=== PATIENT | female | born 1985 | race Caucasian/White ===

== ENCOUNTER 2019-03-17 19:02 | Emergency (ER) | payer OTHER ==
[~2019-03-17] VITALS: Ht 157.5 cm; Wt 112.0 kg
--- OUTSIDE RECORDS SUMMARY | ~2019-03-17 | XMS | Encounter Summary ---
Demographics + + + | Address | [address] | | | [place] [address] | + + + | Home Phone | | + + + | Preferred Language | Unknown | + + + | Marital Status | Single | + + + | Cheondoism Affiliation | Unknown | + + + | Race | Unknown | + + + | Ethnic Group | Unknown | + + + Author + + + | Author | [facility] | | | and [place] | + + + | Organization | [facility] | | | and [place] | + + + | Address | Unknown | + + + | Phone | Unavailable | + + + Support + + +---------+ + | Name | Relationship | Address | Phone | + + +---------+ + | Lalita Elizabeth | ECON | Unknown | | + + +---------+ + | Artemio Cazareskeri | ECON | Unknown | | + + +---------+ + Care Team Providers + +------+ + | Care Coverage Specialist Name | Role | Phone | + +------+ + PCP | Unavailable | + +------+ + Encounter Details +--------+ + + + + | Date | Type | Department | Care Team | Description | +--------+ + + + + | 12/21/ | Hospital | [facility] | | | | 2000 | Encounter | MED CTR XRAY [address] | | | | | [address] [place] | | | | | | [place] [address] | | | | | | [phone] | | | +--------+ + + + + Social History + +-------+ +--------+------+ | Tobacco Use | Types | Packs/Day | Years | Date | | | | | Used | | + +-------+ +--------+------+ | Never Assessed | | | | | + +-------+ +--------+------+ + + + | Sex Assigned at | Date Recorded | | | | + + + | Not on file | | + + + + + + + | Job Start Date | Occupation | Industry | + + + + | Not on file | Not on file | Not on file | + + + + + + + + | Travel History | Travel Start | Travel End | + + + + + + | No recent travel history available. | + + documented as of this encounter Plan of Treatment Not on filedocumented as of this encounter Visit Diagnoses Not on filedocumented in this encounter"
--- OUTSIDE RECORDS SUMMARY | ~2019-03-17 | XMS | Encounter Summary ---
Demographics + + + | Address | [address] | | | [place] [address] | + + + | Home Phone | | + + + | Preferred Language | Unknown | + + + | Marital Status | Single | + + + | Jain Affiliation | Unknown | + + + | Race | Unknown | + + + | Ethnic Group | Unknown | + + + Author + + + | Author | [facility] | | | and [place] | + + + | Organization | [facility] | | | and [place] | [...] Team Providers + +------+ + | Care Safety Inspector Name | Role | Phone | + +------+ + PCP | Unavailable | + +------+ + Encounter Details +--------+ + + + + | Date | Type | Department | Care Team | Description | +--------+ + + + + | 12/21/ | Hospital | [facility] | | | | 2000 | Encounter | MED CTR XRAY [address] | | | | | [address] | | | | | | [place] [address] | | | | | | [phone] | | | +--------+ + + + [...]
--- OUTSIDE RECORDS SUMMARY | ~2019-03-17 | XMS | Encounter Summary ---
Demographics + + + | Address | [address] | | | [place] [address] | + + + | Home Phone | | + + + | Preferred Language | Unknown | + + + | Marital Status | Single | + + + | Mormon Affiliation | Unknown | + + + | Race | Unknown | + + + | Ethnic Group | Unknown | + + + Author + + + | Author | [facility] | | | and [place] | + + + | Organization | [facility] | | | and [place] | + + + | Address | Unknown | + + + | Phone | Unavailable | + + + Support + + +---------+ + | Name | Relationship | Address | Phone | + + +---------+ + | Lalita Elizabeth | ECON | Unknown | | + + +---------+ + | Artemio Dooley | ECON | Unknown | | + + +---------+ + Care Team Providers + +------+ + | Care Audio Visual Equipment Rental Clerk Name | Role | Phone | + +------+ + | No, Physician | PCP | Unavailable | + +------+ + Reason for Referral Evaluate & Treat (Routine) +--------+ + + + + + | Status | Reason | Specialty | Diagnoses / | Referred By | Referred To | | | | | Procedures | Contact | Contact | +--------+ + + + + + | Closed | Specialty | | Diagnoses | [facility], | | | | Services | Services / | At risk for | Migue Nix MD | | | | Required | | ineffective | [id number] | | | | | and | | [place] | | | | | | breastfeedin | [place] | | | | | | g | [place], | | | | | | | [place] [address] | | | | | | | Phone: | | | | | | | [phone] | | | | | | | Fax: | | | | | | | [phone] | | +--------+ + + + + + Reason for Visit Auth/Cert +--------+--------+ + + + + | Status | Reason | Specialty | Diagnoses / | Referred By | Referred To | | | | | Procedures | Contact | Contact | +--------+--------+ + + + + | Closed | | | | | | +--------+--------+ + + + + Encounter Details +--------+ + + + + | Date | Type | Department | Care Team | Description | +--------+ + + + + | 09/30/ | Hospital | [facility] | Migue Wilder, | At risk for | | 2014 - | Encounter | MED CTR [facility] | [id number] | ineffective | | | | [address] | [facility] [place] | | | 10/02/ | | [place] | [place] [address] | (Primary Dx) | | 2013 | | [address] | [phone] | | | | | [phone] | | | +--------+ + + + + Social History + +-------+ +--------+------+ | Tobacco Use | Types | Packs/Day | Years | Date | | | | | Used | | + +-------+ +--------+------+ | Never Smoker | | | | | + +-------+ +--------+------+ + + +---------+ + | Alcohol Use | Drinks/Week | oz/Week | Comments | + + +---------+ + | No | | | | + + +---------+ + + + + | Sex Assigned at [...] + + documented as of this encounter Last Filed Vital Signs + + + + + | Vital Sign | Reading | Time Taken | Comments | + + + + + | Blood Pressure | 108/65 | 10/02/2013 8:00 AM | | | | | PDT | | + + + + + | Pulse | 84 | 10/02/2013 8:00 AM | | | | | PDT | | + + + + + | Temperature | 36.9 C (98.4 F) | 10/02/2013 8:00 AM | | | | | PDT | | + + + + + | Respiratory Rate | 16 | 10/02/2013 8:00 AM | | | | | PDT | | + + + + + | Oxygen Saturation | 98% | 09/30/2013 2:00 PM | | | | | PDT | | + + + + + | Inhaled Oxygen | - | - | | | Concentration | | | | + + + + + | Weight | 115.7 kg (255 lb) | 09/30/2013 4:08 AM | | | | | PDT | | + + + + + | Height | 157.5 cm (5' 2") | 09/30/2013 4:08 AM | | | | | PDT | | + + + + + | Body Mass Index | 46.64 | 09/30/2013 4:08 AM | | | | | PDT | | + + + + + documented in this encounter Functional Status + + + + | Functional Status | Response | Date of Assessment | + + + + | Are you deaf or do you have serious | No | 09/30/2013 | | difficulty hearing? | | | + + + + | Are you blind or do you have serious | No | 09/30/2013 | | difficulty seeing, even when wearing | | | | glasses? | | | + + + + | Do you have serious difficulty walking or | No | 09/30/2013 | | climbing stairs? (5 years old or older) | | | + + + + | Do you have difficulty dressing or bathing? | No | 09/30/2013 | | (5 years old or older) | | | + + + + | Because of a physical, mental, or emotional | No | 09/30/2013 | | condition, do you have difficulty doing | | | | errands alone such as visiting a doctor's | | | | office or shopping? [15 years old or | | | | older)] | | | + + + + + + + + | Cognitive Status | Response | Date of Assessment | + + + + | Because of a physical, mental, or emotional | No | 09/30/2013 | | condition, do you have serious difficulty | | | | concentrating, remembering, or making | | | | decisions? (5 years old or older) | | | + + + + documented as of this encounter Discharge Instructions Instructions Criselda Vivar RN - 10/02/2013 DISCHARGE INSTRUCTIONS Warning Signs Check List Notify your clinician immediately if you are experiencing any of the following: Heavy bleeding from the vagina (blood is bright-red and soaks a pad in an hour or less) Normal bleeding decreases in amount over time and is: Bright-red (lasts two to three days). Pinkish or brown (lasts from about the third day to the tenth day). Creamy or yellow (usually lasts one to two weeks). Discharge from the vagina that has a bad odor. Temperature over 100.4 (38 C) or you feel cold and have the chills (you are oral vering). Urination that is painful, difficult, or too frequent. Difficulty having a bowel movement. Painful, very red, and swollen incision or leaking of any fluids. Breasts that are full and or/painful (swollen, hot, tight, itchy, lumpy, shiny, flat nip ples, or sore spots with flu-like symptoms). Pain that becomes worse and unrelieved by medication. Trouble breathing, dizziness, or faintness. Crying spells or mood swings that feel out of control. Pain, redness, warmth or firmness in the lower calf. Activity/Exercise Do not drive while you are taking narcotics. If you had a secion, try driving maneuvers while parked to ensure no increase in incisional pain. Gradually increase your daily activities until you are back to your normal routine. Rest frequently. Remember to continue to drink plenty of fluids and eat frequently if yo u are . Heavy lifting or other strenuous exertion is unlikely to disrupt your incision or lacera tion but it may cause an increase in pain. Your provider will tell you if additional restric tions apply to you . Bowels and Regularity constipation is common; You make take Docusate sodium or Milk of Magnesia to alleviate discomfort Painful bowel movements or rectal pain may result from hemorrhoids; use Tucks and/or to pical treatment like Anusol-HC. Sitz baths can also help Normal Bleeding Vaginal spotting may last up to six weeks. It is important that you change your pad on a regular basis. Your menstrual period may occur as early as six weeks to two months after your delivery. Care of Stitches You should feel less discomfort every day from your stitches. Perineal stitches will dissolve within 2-4 weeks. You may shower or bathe with stitches; drip plain or soapy water over the incision and d ry gently with a clean towel. If you have sergey; you may shower, (no tub bathing) and dry gently with a clean towel. If you had any sergey that were not removed during your hospitalization they will need to be removed in your provider's office. Steri-strips may fall off on their own or can be removed at post-op visit. Sex/Douching/Tampons Do not place anything in the vagina for the first six weeks after delivery. Your healthcare provider may advise you to wait up to six weeks for intercourse. Once th e bleeding has stopped, it is alright to have intercourse if you feel ready. Keep in mind yo u are at risk of getting . You may find your vagina feels dry, making sex uncomfortable. This can last several clive hs due to changing hormone levels. To help lubricate your vagina, you may purchase a water-s oluble lubricant (e.g., Astroglide) from your local drug store. This will help make interco urse more comfortable. documented in this encounter Medications at Time of Discharge + + + +---------+ + + | Medication | Sig | Dispensed | Refills | Start | End Date | | | | | | Date | | + + + +---------+ + + | | Take 1-2 tablets by | 15 | 0 | 10/03/19 | | | HYDROcodone-acetamin | mouth every 4 hours | tablet | | 14 | | | ophen (NORCO) 5-325 | as needed for Pain. | | | | | | mg per tablet | | | | | | + + + +---------+ + + | levothyroxine | Take 125 mcg by | | 0 | | | | (SYNTHROID, | mouth every morning | | | | | | LEVOTHROID) 112 mcg | (before breakfast). | | | | | | tablet | | | | | | + + + +---------+ + + | multivitamin | Take 1 tablet by | | 0 | | | | tablet | mouth Daily. | | | | | + + + +---------+ + + | ibuprofen | Take 1 tablet by | 30 | 0 | 10/03/19 | | | (ADVIL,MOTRIN) 800 | mouth every 8 hours | tablet | | 14 | 4 | | MG tablet | as needed for Pain | | | | | | | for up to 10 days. | | | | | + + + +---------+ + + documented as of this encounter Progress Notes Migue Wilder MD - 10/02/2013 11:13 AM PDTPPD#2 S-feels well. Breast-feeding going well. Appropriate fundal and perineal discomfort. O-VSS Abdomen: Soft and nontender. Fundus: Not palpable. Perineum: Well approximated without erythema or edema. Lochia: Scant rubra hematocrit: 35% A/P-stable and ready for discharge. Routine discharge instructions reviewed. Followup in 6 weeks with me in clinic, or sooner for any problems. Migue Ortiz MD - 10/01/2013 6:10 AM PDTPPD#1 S-tired. latching on intermittently, and feels she still needs to work on breast-fe eding. Ambulating and voiding without difficulty. Pain control is adequate. O-VSS Chest: Clear to auscultation. Cardiac: Regular rate and rhythm without significant murmur. Breasts: Nontender without engorgement. Abdomen: Soft and nontender. Fundus firm and appropriately tender, just below umbilicus. Lochia: Moderate Perineum: Well approximated. Extremities: Nontender with 2+ edema. Hematocrit: Pending A/P-stable day #1. Will need assistance with breast-feeding. Anticipate discha rge tomorrow. Rajni Gutierrez RN - 09/30/2013 7:12 PM PDTBedside report from aleida rice. Assumed care. P t prepped for pushing. Legs up.Dr guardado at bedside. Instruction providedElectronically sign ed by Rajni Shaw RN at 09/30/2013 9:01 PM Migue Ortiz MD - 5:22 PM PDTLabor Progress S-uncomfortable with contractions. Serial fentanyl injections have given some relief. O- she is afebrile. Cervix: 7, however with contraction stretches to 8/complete/-1. Fetus is in left occiput p osterior position. FHTs-baseline in the 140s with moderate ekas-mb-hopb variability. Contractions: Not easily monitored due to patient's size, however by palpation occurring ev chris 2-3 minutes and moderate. A/P-adequate progress in labor. CPM. 14 5:27 PM Migue Ortiz MD - 09/30/2013 10:54 AM PDTLabor progress S-mildly uncomfortable with regular uterine contractions. Pitocin at 6 miu/min O-VSS Cervix: 4/95%/-1 heart tones: Category 1 tracing Uterine contractions: Every 2-3 minutes, mild to moderate to palpation. A/P-adequate labor progress. Continue to monitor. documented in this encounter Plan of Treatment + + +--------+ + + | Name | Type | Priori | Associated Diagnoses | Order Schedule | | | | ty | | | + + +--------+ + + | Ambulatory referral | Outpatient | Routin | At risk for | 1 Occurrences | | to | Referral | e | ineffective | starting 09/30/2013 | | | | | | until 11/04/2013 | + + +--------+ + + documented as of this encounter Procedures + +--------+ + + + | Procedure Name | Priori | Date/Time | Associated Diagnosis | Comments | | | ty | | | | + +--------+ + + + | CBC NO DIFFERENTIAL | Routin | 10/01/2013 | | Results for this | | | e | 7:07 AM | | procedure are in the | | | | PDT | | results section. | + +--------+ + + + documented in this encounter Results CBC no Differential (10/01/2013 7:07 AM PDT) + + + + + + | Component | Value | Ref Range | Performed | Pathologist | | | | | At | Signature | + + + + + + | WBC | 18.5 (H) | 4.0 - 11.0 K/uL | [facility] | | | | | | [facility] | | | | | | [facility] | | + + + + + + | RBC | 4.30 | 3.70 - 5.20 | [facility] | | | | | M/uL | [facility] | | | [facility] | | | | | | [facility] | | + + + + + + | Hemoglobin | 11.8 | 11.5 - 16.0 | [facility] | | | | | g/dL | [facility] | | | | | | [facility] | | + + + + + + | Hematocrit | 34.6 | 34.0 - 47.0 % | [facility] | | | | | | [facility] | [facility] | | [facility] | | | | | | [facility] | | + + + + + + | MCV | 80.5 (L) | 83.0 - 101.0 fL | [facility] | | | | | | [facility] | [facility] | | [facility] - | | | | | | [facility] | | + + + + + + | MCH | 27.4 (L) | 28.0 - 35.0 pg | [facility] | | | | | | [facility] | [facility] | [facility] | | | [facility] | | | | | | [facility] | | + + + + + + | MCHC | 34.0 | 32.0 - 36.0 | [facility] | | | | | g/dL | [facility] | | | | | [facility] | | [facility] - | | | | | | [facility]ORY | | + + + + + + | RDW-CV | 15.3 (H) | <15.0 % | [facility] | | | | | | [facility] | [facility] | [facility] | | | | | | [facility] | | + + + + + + | Platelet | 250 | 140 - 440 K/uL | [facility] | | | Count | | | [facility] | | [facility] | [facility] | | | [facility] - | | | | | | [facility]ORY | | + + + + + + | MPV | 7.5 | fL | [facility] | | | | | | [facility] | | | [facility] | | | | | | [facility] | | + + + + + + + + | Specimen | + + | Blood | + + + + + + + | Performing | Address | City/State/Zipcode | Phone Number | | Organization | | | | + + + + + | [facility] | [address] | [place] | [phone] | | [facility] | | [address] | | | - LABORATORY | | | | + + + + + | [facility] | [address] | [place] | | | [facility] | | [address] | | | - LABORATORY | | | | + + + + + documented in this encounter Visit Diagnoses + + | Diagnosis | + + | At risk for ineffective - Primary | + + documented in this encounter Administered Medications + +--------+ +------+------+------+ | Medication Order | MAR | Action | Dose | Rate | Site | | | Action | Date | | | | + +--------+ +------+------+------+ | benzocaine 20%-menthol | Given | 10/02/19 | | | | | (DERMOPLAST) topical spray | | 14 3:23 | | | | | Topical, EVERY 6 HOURS PRN, Pain, | | AM PDT | | | | | Starting 09/30/13 at 2145, | | | | | | | | | | | | | + +--------+ +------+------+------+ +---+---+ | | | +---+---+ + +-------+ +--------+---+---+ | docusate sodium (COLACE) | Given | 10/02/19 | 200 mg | | | | capsule 200 mg 200 mg, Oral, | | 14 8:12 | | | | | NIGHTLY, First dose on Fri | | PM PDT | | | | | 09/30/13 at 2215, Hold for loose | | | | | | | stools, | | | | | | + +-------+ +--------+---+---+ +---+---+ | | | +---+---+ + +-------+ +--------+---+ + | fentaNYL injection 50-100 mcg | Given | 10/01/19 | 50 mcg | | Left Arm | | 50-100 mcg, Intravenous, EVERY 1 | | 14 6:25 | | | | | HOUR PRN, Pain, Starting Fri | | PM PDT | | | | | 09/30/13 at 0433, Maximum total | | | | | | | dose is 200 mcg., | | | | | | + +-------+ +--------+---+ + +-------+ +--------+---+ + | Given | 10/01/19 | 50 mcg | | Left Arm | | | 14 5:39 | | | | | | PM PDT | | | | +-------+ +--------+---+ + | Given | 10/01/19 | 50 mcg | | Left Arm | | | 14 5:09 | | | | | | PM PDT | | | | +-------+ +--------+---+ + +---+---+ | | | +---+---+ + +-------+ +---------+---+---+ | HYDROcodone-acetaminophen | Given | 10/03/19 | 2 | | | | (NORCO) 5-325 mg per tablet 1-2 | | 14 2:45 | tablets | | | | tablet 1-2 tablet, Oral, EVERY 4 | | PM PDT | | | | | HOURS PRN, Pain, Starting Fri | | | | | | | 09/30/13 at 2145, If ineffective | | | | | | | or not tolerated, use oxycodone | | | | | | | if ordered., | | | | | | + +-------+ +---------+---+---+ +-------+ + +---+---+ | Given | 10/03/19 | 1 tablet | | | | | 14 5:37 | | | | | | AM PDT | | | | +-------+ + +---+---+ | Given | 10/02/19 | 1 tablet | | | | | 14 6:48 | | | | | | PM PDT | | | | +-------+ + +---+---+ +---+---+ | | | +---+---+ + +-------+ +--------+---+---+ | ibuprofen (ADVIL,MOTRIN) tablet | Given | 10/03/19 | 800 mg | | | | 800 mg 800 mg, Oral, EVERY 8 | | 14 5:38 | | | | | HOURS PRN, Pain, Starting Fri | | AM PDT | | | | | 09/30/13 at 2145, If urine output | | | | | | | is less than 240 mL/8 hours (30 | | | | | | | mL/hr) or if signs of bleeding, | | | | | | | contact MD and hold ibuprofen., | | | | | | | | | | | | | + +-------+ +--------+---+---+ +-------+ +--------+---+---+ | Given | 10/02/19 | 800 mg | | | | | 14 5:20 | | | | | | PM PDT | | | | +-------+ +--------+---+---+ | Given | 10/02/19 | 800 mg | | | | | 14 8:46 | | | | | | AM PDT | | | | +-------+ +--------+---+---+ +---+---+ | | | +---+---+ + +---------+ +--------+-------+ + | lactated ringers (LR) infusion | New Bag | 10/01/19 | 1,000 | 125 | Left Arm | | at 125 mL/hr, Intravenous, | | 14 7:08 | mLs | mL/hr | | | CONTINUOUS, Starting 09/30/13 | | PM PDT | | | | | at 0500 | | | | | | + +---------+ +--------+-------+ + +---------+ +--------+-------+ + | New Bag | 10/01/19 | 1,000 | 125 | Left Arm | | | 14 12:31 | mLs | mL/hr | | | | PM PDT | | | | +---------+ +--------+-------+ + | New Bag | 10/01/19 | | 125 | | | | 14 5:00 | | mL/hr | | | | AM PDT | | | | +---------+ +--------+-------+ + +---+---+ | | | +---+---+ + +-------+ +---+---+---+ | lanolin ointment Topical, PRN, | Given | 10/02/19 | | | | | Dry Skin, for moist wound | | 14 8:46 | | | | | healing, Starting 09/30/13 at | | AM PDT | | | | | 2145, Apply to nipples. May keep | | | | | | | at bed side., | | | | | | + +-------+ +---+---+---+ +---+---+ | | | +---+---+ + +-------+ +---------+---+---+ | levothyroxine (SYNTHROID, | Given | 10/03/19 | 125 mcg | | | | LEVOTHROID) tablet 125 mcg 125 | | 14 7:33 | | | | | mcg, Oral, DAILY BEFORE | | AM PDT | | | | | BREAKFAST, First dose on Sat | | | | | | | 10/01/13 at 0730, Give before | | | | | | | breakfast., | | | | | | + +-------+ +---------+---+---+ +-------+ +---------+---+---+ | Given | 10/02/19 | 125 mcg | | | | | 14 8:44 | | | | | | AM PDT | | | | +-------+ +---------+---+---+ +---+---+ | | | +---+---+ + + + + +-------+---+ | oxytocin in saline (PITOCIN) 30 | Rate/Dos | 10/01/19 | 999 | 999 | | | units/500 mL (60 art-units/mL) | e Change | 14 9:00 | art-un | mL/hr | | | infusion 0-999 art-units/min | | PM PDT | its/min | | | | (rounded to 0-999 mL/hr), at | | | | | | | 0-999 mL/hr, Intravenous, | | | | | | | TITRATED, Starting Thu09/30/13 at | | | | | | | 0500, Low Dose (Cervical | | | | | | | Ripening) Management: Dose 1-4 | | | | | | | mU/min. Begin infusion at 1 | | | | | | | mU/min for 60 minutes, Increase | | | | | | | to 2 mU/min for 60 minutes, | | | | | | | Increase to 4 mU/min and continue | | | | | | | at this level until Moya score | | | | | | | of 7 or more. Maximum dose for | | | | | | | cervical ripening = 4mU/min. | | | | | | | Standard (Augmentation/Induction) | | | | | | | Management: Dose 0-40 mU/min. | | | | | | | Begin infusion at 1-2 mU/minute. | | | | | | | Increase at no greater than 2 | | | | | | | mU/min every 30 minutes, until | | | | | | | adequate labor. Maximum standard | | | | | | | dose for augmentation/induction | | | | | | | = 20 mU/min. Call provider to | | | | | | | increase above 20 mU/min. Do not | | | | | | | increase above 40 mU/min. Do | | | | | | | not increase rate if there is | | | | | | | tachysystole ( > 5 contractions | | | | | | | in 10 minutes averaged over 30 | | | | | | | minutes) or concern regarding | | | | | | | tracing. For tachysystole, | | | | | | | indications or increased | | | | | | | baseline uterine tone, notify | | | | | | | provider and stop or decrease | | | | | | | oxytocin infusion per unit policy | | | | | | | until the indication has ceased. | | | | | | | Restart the infusion per policy | | | | | | | or at 50% or less of the previous | | | | | | | rate. Third Stage | | | | | | | Management/Immediate : | | | | | | | Dose 0-999 mU/min. After delivery | | | | | | | of anterior shoulder or | | | | | | | placenta, titrate to control | | | | | | | bleeding. May discontinue if | | | | | | | fundus firm, bladder not | | | | | | | distended and patient tolerating | | | | | | | oral fluids and pain meds., | | | | | | | Initiate oxytocin after delivery | | | | | | | of anterior shoulder or placenta | | | | | | | for third stage management: yes | | | | | | + + + + +-------+---+ + + + +---------+---+ | Rate/Dose Change | 10/01/19 | 8 | 8 mL/hr | | | | 14 8:34 | art-un | | | | | PM PDT | its/min | | | + + + +---------+---+ | Rate/Dose Change | 10/01/19 | 6 | 6 mL/hr | | | | 14 7:45 | art-un | | | | | PM PDT | its/min | | | + + + +---------+---+ +---+---+ | | | +---+---+ + +-------+ + +---+---+ | 27-0.8 mg multivitamin | Given | 10/02/19 | 1 tablet | | | | 1 tablet 1 tablet, Oral, DAILY, | | 14 8:44 | | | | | First dose on 10/01/13 at | | AM PDT | | | | | 0900, | | | | | | + +-------+ + +---+---+ +---+---+ | | | +---+---+ + +-------+ +---+---+---+ | jhoan MCCABE) pads | Given | 10/02/19 | | | | | Topical, EVERY 1 HOUR PRN, | | 14 3:23 | | | | | Discomfort, Starting 09/30/13 | | AM PDT | | | | | at 2145, | | | | | | + +-------+ +---+---+---+ +---+---+ | | | +---+---+ documented in this encounter
--- OUTSIDE RECORDS SUMMARY | ~2019-03-17 | XMS | Encounter Summary ---
Demographics + + + | Address | [address] | | | [place] [address] | + + + | Home Phone | | + + + | Preferred Language | Unknown | + + + | Marital Status | Single | + + + | Gnosticism Affiliation | Unknown | + + + | Race | Unknown | + + + | Ethnic Group | Unknown | + + + Author + + + | Author | [facility] | | | and [place] | + + + | Organization | [facility] | | | and [place] | [...] Team Providers + +------+ + | Care Bone Char Kiln Operator Name | Role | Phone | + +------+ + | No, Physician | PCP | Unavailable | + +------+ + Reason for Visit Auth/Cert +--------+--------+ + [...] + + + + | 09/30/ | Anesthesia | [facility] | Joshua Stockton | | | 2014 | Event | [facility] | Tyrone HENRY MD [address] | | | | [address] [place] | | | | | [place], | [place] [address] | | | | | [place] [address] | [phone] | | | | | [phone] | | | | | | | Piyush Stockton MD | | | | | | [address] | | | | | | [place] | | | | | | [address] | | | | | | | | +--------+ + + + + Anesthesia Record + + + + + | Procedure Name | Responsible | Anesthesia Start | Anesthesia Stop Time | | | Anesthesiologist | Time | | + + + + + | epidural | Joshua Stockton | 09/30/132011 | 09/30/132049 | | | II, MD | | | + + + + + +----+---+ + + | Da | T | Event | Comment | | te | i | | | | | m | | | | | e | | | +----+---+ + + | 06 | 2 | An Start | Reassessment prior to anesthesia induction/procedure. | | /2 | 0 | | | | 7/ | 1 | | | | 20 | 2 | | | | 14 | | | | +----+---+ + + | | 2 | Out of OR | | | | 0 | Device | | | | 1 | Start | | | | 2 | | | +----+---+ + + | | 2 | Epi/spinal | | | | 0 | Stop | | | | 1 | | | | | 8 | | | +----+---+ + + | | 2 | | | | | 0 | | | | | 2 | | | | | 8 | | | +----+---+ + + | | 2 | An Stop | Patient handed off to recovery nurse. | | | 5 | | | | | 0 | | | +----+---+ + + +------+ | Meds | +------+ + + + No medications | on file. | + + + + + | No agents on file. | + + + + | No blood administrations on file. | + + +--------+ + + + | Type | Details | Placement | Removal | +--------+ + + + | [READ | 09/30/13; 0446; 10/01/13; 1858 | 09/30/136 by | 10/01/131857 by | | ONLY] | | Soraya Mcclain RN | Chelsey Gaines, | | | | | RN | | Periph | | | | | eral | | | | | IV - | | | | | Double | | | | | Lumen | | | | | | | | | +--------+ + + + documented in this encounter Social History + +-------+ +--------+------+ | Tobacco [...] + + documented as of this encounter Functional Status + + + [...] Not on filedocumented as of this encounter Procedures + +--------+ + + + | Procedure Name | Priori | Date/Time | Associated Diagnosis | Comments | | | ty | | | | + +--------+ + + + | ANESTHESIA BLOCK | Routin | 09/30/2013 | | Results for this | | | e | 8:24 PM | | procedure are in the | | | | PDT | | results section. | + +--------+ + + + documented in this encounter Results ANESTHESIA BLOCK (09/30/2013 8:24 PM PDT) + + + | Narrative | Performed At | + + + | Piyush Stockton MD 09/30/2013 20:24 Procedure Note Spinal | | | Procedure: Spinal, L2-3, Approach: Medial Technique: Single-Shot | | | Pre-procedure Events: Patient Identified, Pre-op Evaluation | | | Completed, Risks and Benefits Discussed, Procedure Consent Obtained | | | and Timeout Performed. Patient Positioning: Sitting Prep: ChloraPrep | | | used. Skin Local Anesthetic: Lidocaine 1% Needle: 25 G Pencan | | | (4 in). Ease: Easy Attempts: 1 Note: Positive CSF | | | Return.Negative Paresthesia. R/B/O discussed. SAB with | | | intrathecal fentanyl agreed upon. Pt. In sitting postion, sterile | | | prep, drape, lido sq midline times one, clear csf free flow 25 mcg | | | fentanyl injected. Pt tolerated the procedure well. Analgesia | | | expectant. Performed by: Performing Provider: Piyush Stockton. | | | | | + + + + + | Procedure Note | + + | Piyush Stockton MD - 09/30/2013 8:19 PM PDT Procedure NoteSpinalProcedure: Spinal, | | L2-3, Approach: Medial Technique: Single-Shot Pre-procedure Events: Patient Identified, | | Pre-op Evaluation Completed, Risks and Benefits Discussed, Procedure Consent Obtained | | and Timeout Performed.Patient Positioning: SittingPrep: ChloraPrep used. Skin Local | | Anesthetic: Lidocaine 1%Needle: 25 G Pencan (4 in). Ease: EasyAttempts: 1 Note: | | Positive CSF Return.Negative Paresthesia. R/B/O discussed. SAB with intrathecal | | fentanyl agreed upon. Pt. In sitting postion, sterile prep, drape, lido sq midline | | times one, clear csf free flow25 mcg fentanyl injected. Pt tolerated the procedure | | well. Analgesia expectant.Performed by: Performing Provider: Piyush Stockton. | |Skin Local Anesthetic: Lidocaine 1% | |Needle: 25 G Pencan (4 in). | | | | | |Ease: Easy | |Attempts: 1 | | | |Note: Positive CSF Return.Negative Paresthesia. R/B/O discussed. SAB with intrathecal fen tanyl agreed upon. Pt. In sitting postion, sterile prep, drape, lido sq midline times one, clear csf free flow | |25 mcg fentanyl injected. Pt tolerated the procedure well. Analgesia expectant. | | | | | |Performed by: | |Performing Provider: Piyush Stockton. | + + documented in this encounter Visit Diagnoses Not on filedocumented in this encounter"
--- OUTSIDE RECORDS SUMMARY | ~2019-03-17 | XMS | Clinical Summary ---
Demographics + + + | Address | [address] | | | [place] [address] | + + + | Home Phone | | + + + | Preferred Language | Unknown | + + + | Marital Status | Single | + + + | Faith Affiliation | Unknown | + + + | Race | Unknown | + + + | Ethnic Group | Unknown | + + + Author + + + | Author | [facility] | | | and [place] | + + + | Organization | [facility] | | | and [place] | + + + | Address | Unknown | + + + | Phone | Unavailable | + + + Support + + +---------+ + | Name | Relationship | Address | Phone | + + +---------+ + | Lalita Elizabeth | ECON | Unknown | | + + +---------+ + | Filomenatrey Dooley | ECON | Unknown | | + + +---------+ + Care Team Providers + +------+ + | Care Proofreader Name | Role | Phone | + +------+ + | No, Physician | PCP | Unavailable | + +------+ + Allergies No Known Allergies Medications + + + +---------+------+------+-------+ | Medication | Sig | Dispensed | Refills | Star | End | Statu | | | | | | t | Date | s | | | | | | Date | | | + + + +---------+------+------+-------+ | levothyroxine | Take 125 mcg by | | 0 | | | Activ | | (SYNTHROID, | mouth every morning | | | | | e | | LEVOTHROID) 112 mcg | (before breakfast). | | | | | | | tablet | | | | | | | + + + +---------+------+------+-------+ | multivitamin | Take 1 tablet by | | 0 | | | Activ | | tablet | mouth Daily. | | | | | e | + + + +---------+------+------+-------+ | | Take 1-2 tablets by | 15 | 0 | 06/2 | | Activ | | HYDROcodone-acetamin | mouth every 4 hours | tablet | | 9/20 | | e | | ophen (NORCO) 5-325 | as needed for Pain. | | | 14 | | | | mg per tablet | | | | | | | + + + +---------+------+------+-------+ Active Problems Not on file Social History + +-------+ +--------+------+ | Tobacco [...] recent travel history available. | + + Last Filed Vital Signs + + + [...] | | + + + + + Plan of Treatment + + + + + | Health Maintenance | Due Date | Last Done | Comments | + + + + + | Vaccine: | | | | | Dtap/Tdap/Td (1 - | 5 | | | | Tdap) | | | | + + + + + | Cervical Cancer | | | | | Screening (Pap) | 6 | | | + + + + + | Vaccine: Influenza | | | | | (#1) | 9 | | | + + + + + Results Not on filefrom Last 3 Months Insurance + +--------+ +--------+ +---------+--------+ | Payer | Benefi | Subscriber | Effect | Phone | Address | Type | | | t Plan | ID | freya | | | | | | / | | Dates | | | | | | Group | | | | | | + +--------+ +--------+ +---------+--------+ | [employer] | [place] | [id number] | | [phone] | | Medica | | MEDICAID HMO | HEALTH | | 014-Pr | 1 | | id | | | MDCD | | esent | | | | | | [place] | | | | | | + +--------+ +--------+ +---------+--------+ + +--------+ +--------+ + + | Guarantor Name | Accoun | Relation to | Date | Phone | Billing Address | | | t Type | Patient | of | | | | | | | | | | + +--------+ +--------+ + + | Ruthie Dooley | Person | Self | [birth year] | [address] | | [place] | [place] | | 1986 | [phone] | [place] [address] | | | [place] | | | 4 (Home) | | + +--------+ +--------+ + + Advance Directives + + + + + | Type | Date Recorded | Patient | Explanation | | | | 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
--- OUTSIDE RECORDS SUMMARY | ~2019-03-17 | XMS | Encounter Summary ---
Demographics + + + | Address | [address] | | | [place] [address] | + + + | Home Phone | | + + + | Preferred Language | Unknown | + + + | Marital Status | Single | + + + | Protestant Affiliation | Unknown | + + + | Race | Unknown | + + + | Ethnic Group | Unknown | + + + Author + + + | Author | [facility] | | | and [place] | + + + | Organization | [facility] | | | and [facility] [...] Team Providers + +------+ + | Care Structural Steel Shop Supervisor Name | Role | Phone | + [...] | | Required | | ineffective | [id number] | | | | | and | | [place] | | | | | | breast[place]in | [place] | | | | | | [place] | [place], | | | | | | | [place] [address] | | | | | | | Phone: | | | | | | | [phone] | | | | | | | Fax: | | | | | | | [phone] | | +--------+ + + + + [...] + + | 09/30/ | Hospital | [facility] | [place], | At risk for | | 2014 - | Encounter | [facility] | [id number] | ineffective | | | | [address] | [facility] [place] | | | 10/02/ | | [place] | [place] [address] | (Primary Dx) | | 2013 | | [address] | [phone] | | | | | [phone] | | | +--------+ + + + [...] position. FHTs-baseline in the 140s with moderate bdgl-lm-qcli variability. Contractions: Not easily monitored due to [...] [address] | [place] | [phone] | | [facility] | | [address] | | | - LABORATORY | | | | + + + + + | [address] | [address] | [place] | | | [facility] | | [address] | | | - LABORATORY | | [...]
--- OUTSIDE RECORDS SUMMARY | ~2019-03-17 | XMS | Encounter Summary ---
Demographics + + + | Address | [address] | | | [place] [address] | + + + | Home Phone | | + + + | Preferred Language | Unknown | + + + | Marital Status | Single | + + + | Denominational Affiliation | Unknown | + + + | Race | Unknown | + + + | Ethnic Group | Unknown | + + + Author + + + | Author | [facility] | | | and [place] | + + + | Organization | [facility] | | | and [facility] [...] Team Providers + +------+ + | Care Endo Tech Name | Role | Phone | + [...] + | 09/30/ | Anesthesia | [facility] | Joshua Stockton | | | 2014 | Event | [facility] | Tyrone HENRY MD [address] | | | | | [address] [place] | | | | | [place], | [place] [address] | | | | | [place] [address] | [phone] | | | | | [phone] | | | | | | | Piyush Stockton MD | | | | | | [address] | | | | | | [place] | | | | | | [address] | | | | | | | [...]
--- OUTSIDE RECORDS SUMMARY | ~2019-03-17 | XMS | Encounter Summary ---
Demographics + + + | Address | [address] | | | [place] [address] | + + + | Home Phone | | + + + | Preferred Language | Unknown | + + + | Marital Status | Single | + + + | Yarsani Affiliation | Unknown | + + + | Race | Unknown | + + + | Ethnic Group | Unknown | + + + Author + + + | Author | [facility] | | | and [place] | + + + | Organization | [facility] | | | and [facility] [...] Team Providers + +------+ + | Care Commercial Fisher Name | Role | Phone | + +------+ + | No, Physician | PCP | Unavailable | + +------+ + Encounter Details +--------+ + + + + | Date | Type | Department | Care Team | Description | +--------+ + + + + | 10/04/ | Hospital | [facility] | | No Show | | 2013 | Encounter | MED CTR OB | | | | | | PROCEDURES [address] | | | | | | [place], | | | | | | [place] [address] | | | | | | [phone] | | | +--------+ + + + [...]
--- OUTSIDE RECORDS SUMMARY | ~2019-03-17 | XMS | Encounter Summary ---
Demographics + + + | Address | [address] | | | [place] [address] | + + + | Home Phone | | + + + | Preferred Language | Unknown | + + + | Marital Status | Single | + + + | Scientologist Affiliation | Unknown | + + + | Race | Unknown | + + + | Ethnic Group | Unknown | + + + Author + + + | Author | [facility] | | | and Clive[place] | + + + | Organization | [facility] | | | and Cliveana [...] Team Providers + +------+ + | Care Kaiako Kohanga Reo Name | Role | Phone | + +------+ + PCP | Unavailable | + +------+ + Reason for Visit + + + | Reason | Comments | + + + | Dizziness | | + + + Encounter Details +--------+ + + + + | Date | Type | Department | Care Team | Description | +--------+ + + + + | 07/14/ | Hospital | [facility] | [place], | | | 2013 | Encounter | [facility] | [address] | | | | | DELIVERY [address] | [place] | | | | | [place], | [place] [address] | | | | | [place] [address] | [phone] | | | | | [phone] | | | +--------+ + + + [...] + + + | Blood Pressure | - | - | | + + + + + | Pulse | - | - | | + + + + + | Temperature | - | - | | + + + + + | Respiratory Rate | - | - | | + + + + + | Oxygen Saturation | - | - | | + + + + + | Inhaled Oxygen | - | - | | | Concentration | | | | + + + + + | Weight | 110.2 kg (243 lb) | 07/14/2013 5:28 PM | | | | | PDT | | + + + + + | Height | 157.5 cm (5' 2") | 07/14/2013 5:28 PM | | | | | PDT | | + + + + + | Body Mass Index | 44.45 | 07/14/2013 5:28 PM | | | | | PDT | | + + + + + documented in this encounter Discharge Instructions Annie Wei RN - 07/14/2013Formatting of this note might be different fro m the original. Discharge Education for the Undelivered Patient You can use the following list as a guide to help you know when to call your provider or re turn to the hospital. Labor Contractions (labor pains) every 5 minutes or less, lasting 60 seconds or more Contractions become stronger Bag of perez broken or leaking fluid from the vagina. Labor (More then 3 weeks before your due date) Contractions (labor pains) every 10 minutes or less, lasting 30 seconds or more Backache or pelvic pressure Bag of perez broken or leaking fluid from the vagina Movement Counting Starting at 7 months ( 28 weeks) Decreased (less than 10 movements in 2 hours) Other Reasons to Call Constant headache Changes in vision Sudden increase in swelling, especially rapid weight gain - chiefly in your face and /or hands Constant abdominal (belly) pain Bright red vaginal bleeding or passing enough clots to need a pad Temperature over 100.4 (38 C) documented in this encounter Medications at Time of Discharge + + + +---------+--------+ + | Medication | Sig | Dispensed | Refills | Start | End Date | | | | | | Date | | + + + +---------+--------+ + | levothyroxine | Take 125 mcg by | | 0 | | | | (SYNTHROID, | mouth every morning | | | | | | LEVOTHROID) 112 mcg | (before breakfast). | | | | | | tablet | | | | | | + + + +---------+--------+ + | multivitamin | Take 1 tablet by | | 0 | | | | tablet | mouth Daily. | | | | | + + + +---------+--------+ + documented as of this encounter Progress Notes Annie Small RN - 07/14/2013 6:35 PM PDTPT TO OB WITH C/O'S INCREASED SWELLING AND SEE ING SPOTS. LABS ORDERED AND HEART TONES 140'S. DR Meade HERE TO ASSESS PT. LAB RESULTS RECEIVED AND ALL WNL AND PT DISCHARGED TO HOME WITH SO WITH PRECAUTIONS.Electronically travis d by Annie Small RN at 07/14/2013 6:37 PM PDTdocumented in this encounter Plan of Treatment Not on filedocumented as of this encounter Procedures + +--------+ + + + | Procedure Name | Priori | Date/Time | Associated Diagnosis | Comments | | | ty | | | | + +--------+ + + + | URINALYSIS WITH | Routin | 07/14/2013 | | Results for this | | MICROSCOPIC WITH | e | 6:25 PM | | procedure are in the | | CULTURE IF INDICATED | | PDT | | results section. | + +--------+ + + + | CBC WITH | Routin | 07/14/2013 | | Results for this | | DIFFERENTIAL | e | 5:43 PM | | procedure are in the | | | | PDT | | results section. | + +--------+ + + + | URIC ACID | Routin | 07/14/2013 | | Results for this | | | e | 5:43 PM | | procedure are in the | | | | PDT | | results section. | + +--------+ + + + | LACTATE | Routin | 07/14/2013 | | Results for this | | DEHYDROGENASE | e | 5:43 PM | | procedure are in the | | | | PDT | | results section. | + +--------+ + + + | COMPREHENSIVE | Routin | 07/14/2013 | | Results for this | | METABOLIC PANEL | e | 5:43 PM | | procedure are in the | | | | PDT | | results section. | + +--------+ + + + documented in this encounter Results Urinalysis with Microscopic with Culture if Indicated (07/14/2013 6:25 PM PDT) + + + + + + | Component | Value | Ref Range | Performed | Pathologist | | | | | At | Signature | + + + + + + | Color | Yellow | Light Yellow, | [facility] | | | | Yellow | [facility] | [facility] | [facility] | | | | | [facility] - | | | | | | LABORATORY | | + + + + + + | Clarity | Clear | Clear | [facility] | | | | | | [facility] | | | [facility] | [facility] | | | | | | [facility] - | | | | | | LABORATORY | | + + + + + + | pH, Urine | 6.0 | 5.0 - 8.0 | [facility] | | | | | | [facility] | | | [facility] | [facility] | | | | | | C[facility] - | | | | | | LABORATORY | | + + + + + + | Specific | 1.010 | 1.001 - 1.030 | [facility] | | | [place] | | | [facility] | | | | | | [facility] | | | | | | CENTER - | | | | | | LABORATORY | | + + + + + + | Protein, | Negative | Negative, | [facility] | | | Urine | | Trace, 30 mg/dL | [facility] | | | | | | [facility] | | | | | | CENTER - | | | | | | LABORATORY | | + + + + + + | Blood, | Negative | Negative | [facility] | | | Urine | | | [facility] | | | | | | [facility] | | | | | | CENTER - | | | | | | LABORATORY | | + + + + + + | Glucose, | Negative | Negative | [facility] | | | Urine | | | [facility] | | | | | | [facility] | | | | | | CENTER - | | | | | | LABORATORY | | + + + + + + | Ketones, | Negative | Negative | [facility] | | | Urine | | | [facility] | | | | | | [facility] | | | | | | CENTER - | | | | | | LABORATORY | | + + + + + + | Bilirubin, | Negative | Negative | [facility] | | | Urine | | | [facility] | | | | | | [facility] | | | | | | CENTER - | | | | | | LABORATORY | | + + + + + + | Nitrite, | Negative | Negative | [facility] | | | Urine | | | [facility] | | | | | | [facility] | | | | | | CENTER - | | | | | | LABORATORY | | + + + + + + | Leukocyte | Negative | Negative | [facility] | | | Esterase, | | | [facility] | | | Urine | | | MEDICAL | | | | | | CENTER - | | | | | | LABORATORY | | + + + + + + | Urobilinoge | 0.2 E.U./dL | 0.2 E.U./dL | [facility] | | | n, Urine | | | [facility] | | | | | | [facility] | | | | | | CENTER - | | | | | | LABORATORY | | + + + + + + | WBC UA | 0-2 | 0 - 2 /HPF | [facility] | | | | | | [facility] | | | | | | [facility] | | | | | | CENTER - | | | | | | LABORATORY | | + + + + + + | SQUAMOUS | 2-5 (A) | 0 - 2 /LPF | [facility] | | | EPITHELIAL | | | [facility] | | | UA | | | MEDICAL | | | | | | CENTER - | | | | | | LABORATORY | | + + + + + + + + | Specimen | + + | Urine | + + + + + + + | Performing | Address | City/State/Zipcode | Phone Number | | Organization | | | | + + + + + | [facility] | [address] | [place], [place] | [phone] | | [facility] | | [address] | | | - LABORATORY | | | | + + + + + | [facility] | [address] | [place], [place] | | | [facility] | | [address] | | | - LABORATORY | | | | + + + + + Lactate Dehydrogenase (07/14/2013 5:43 PM PDT) + +-------+ + + + | Component | Value | Ref Range | Performed | Pathologist | | | | | At | Signature | + +-------+ + + + | LDH TOTAL | 150 | 91 - 180 U/L | [facility] | | | | | | [facility] | | | | | | [facility] | | | | | | CENTER - | | | | | | LABORATORY | | + +-------+ + + + + + | Specimen | + + | Blood | + + + + + + + | Performing | Address | City/State/Zipcode | Phone Number | | Organization | | | | + + + + + | [facility] | [address] | [place] | [phone] | | [facility] | | [address] | | | - LABORATORY | | | | + + + + + | [facility] | [address] | [place] | | | [facility] | | [address] | | | - LABORATORY | | | | + + + + + Uric Acid (07/14/2013 5:43 PM PDT) + +-------+ + + + | Component | Value | Ref Range | Performed | Pathologist | | | | | At | Signature | + +-------+ + + + | Uric Acid | 2.7 | 2.6 - 7.2 mg/dL | [facility] | | | | | [facility] | | [facility] | [facility] | | | | | | CENTER - | | | | | | LABORATORY | | + +-------+ + + + + + | Specimen | + + | Blood | + + + + + + + | Performing | Address | City/State/Zipcode | Phone Number | | Organization | | | | + + + + + | [facility] | [address] | [place] | [phone] | | [facility] | | [address] | | | - LABORATORY | | | | + + + + + | [facility] | [address] | [place] | | | [facility] | | [address] | | | - LABORATORY | | | | + + + + + Comprehensive Metabolic Panel (07/14/2013 5:43 PM PDT) + + + + + + | Component | Value | Ref Range | Performed | Pathologist | | | | | At | Signature | + + + + + + | Na | 133 (L) | 136 - 149 | [facility] | | | | | mmol/L | [facility] | | | | | | MEDICAL | | | | | | CENTER - | | | | | | LABORATORY | | + + + + + + | K | 3.8 | 3.5 - 5.1 | [facility] | | | | | mmol/L | [facility] | | | | | | MEDICAL | | | | | | CENTER - | | | | | | LABORATORY | | + + + + + + | Cl | 106 | 98 - 109 mmol/L | [facility] | | | | | | [facility] | | | | | | MEDICAL | | | | | | CENTER - | | | | | | LABORATORY | | + + + + + + | CO2 | 20 (L) | 24 - 31 mmol/L | [facility] | | | | | | [facility] | | | | | | MEDICAL | | | | | | CENTER - | | | | | | LABORATORY | | + + + + + + | Anion Gap | 7 | 6 - 17 mmol/L | [facility] | | | | | | [facility] | | [facility] | | | [facility]ICAL | | | | | | CENTER - | | | | | | LABORATORY | | + + + + + + | Glucose | 81 | 70 - 109 mg/dL | [facility] | | | | | | [facility] | | | | | | MEDICAL | | | | | | CENTER - | | | | | | LABORATORY | | + + + + + + | BUN | 7 | 7 - 18 mg/dL | [facility] | | | | | | [facility] | | | | | | MEDICAL | | | | | | CENTER - | | | | | | LABORATORY | | + + + + + + | Creatinine | 0.42 (L) | 0.60 - 1.30 | [facility] | | | | | mg/dL | [facility] | | | | | | MEDICAL | | | | | | CENTER - | | | | | | LABORATORY | | + + + + + + | eGFR if not | >60Comment: GLOMERULAR | >=60 | [facility] | | | | FILTRATION | mL/min/1.73m2 | [facility] | | | [place]OLIVIAN | RATE,ESTIMATED | | MEDICAL | | | | mL/min/1.76t5Yqbn than | | CENTER - | | | | 60 Chronic kidney | | LABORATORY | | | | disease,if found over a | | | | | | 3-month period.Less than | | | | | | 15 Kidney failureFor | | | | | | | | | | | | Americans,multiply the | | | | | | calculated GFR by 1.21. | | | | | | | | | | + + + + + + | Calcium | 8.4 | 8.3 - 10.5 | [facility] | | | | | mg/dL | [facility] | | | | | | MEDICAL | | | | | | CENTER - | | | | | | LABORATORY | | + + + + + + | Albumin | 2.6 (L) | 3.2 - 5.0 g/dL | [facility] | | | | | | [facility] | | | | | | [facility]ICAL | | | | | | CENTER - | | | | | | LABORATORY | | + + + + + + | Bilirubin | 0.6 | 0.1 - 1.5 mg/dL | [facility] | | | Total | | | [facility] | | | | | | [facility]ICAL | | | | | | CENTER - | | | | | | LABORATORY | | + + + + + + | Total | 6.1 | 6.0 - 7.8 g/dL | [facility] | | | Protein | | | [facility] | | | | | | MEDICAL | | | | | | CENTER - | | | | | | LABORATORY | | + + + + + + | AST | 21 | 10 - 42 U/L | [facility] | | | | | | [facility] | | | | | | MEDICAL | | | | | | CENTER - | | | | | | LABORATORY | | + + + + + + | ALT | 22 | 6 - 45 U/L | [facility] | | | | | | [facility] | | | | | | MEDICAL | | | | | | CENTER - | | | | | | LABORATORY | | + + + + + + | Alkaline | 65 | 40 - 110 U/L | [facility] | | | Phosphatase | | | [facility] | | | | | | MEDICAL | | | | | | CENTER - | | | | | | LABORATORY | | + + + + + + | Globulin | 3.5 | g/dL | [facility] | | | | | | [facility] | | | | | | MEDICAL | | | | | | CENTER - | | | | | | LABORATORY | | + + + + + + | Albumin/Lamar | 0.7 | | [facility] | | | bulin Ratio | | | [facility] | | | | | | MEDICAL | | | | | | CENTER - | | | | | | LABORATORY | | + + + + + + | BUN/Creatin | 16.7 | | [facility] | | | ine Ratio | | | [facility] | | [...] | + + + + + | [facility] | [address] | [place], [place] | [phone] | | [facility] | | [address] | | | - LABORATORY | | | | + + + + + | [facility] | [address] | [place] | | | [facility] | | [address] | | | - LABORATORY | | | | + + + + + CBC with Differential (07/14/2013 5:43 PM PDT) + + + + + + | Component | Value | Ref Range | Performed | Pathologist | | | | | At | Signature | + + + + + + | WBC | 11.3 (H) | 4.0 - 11.0 K/uL | [facility] | | | | | | [facility] | | | | | | [facility]ICAL | | | | | | CENTER - | | | | | | LABORATORY | | + + + + + + | RBC | 4.70 | 3.70 - 5.20 | [facility] | | | | | M/uL | [facility] | | | | | | MEDICAL | | | | | | CENTER - | | | | | | LABORATORY | | + + + + + + | Hemoglobin | 12.8 | 11.5 - 16.0 | [facility] | | | | | g/dL | [facility] | | | | | | MEDICAL | | | | | | CENTER - | | | | | | LABORATORY | | + + + + + + | Hematocrit | 39.2 | 34.0 - 47.0 % | [facility] | | | | | | [facility] | | | | | | MEDICAL | | | | | | CENTER - | | | | | | LABORATORY | | + + + + + + | MCV | 83.4 | 83.0 - 101.0 fL | [facility] | | | | | | [facility] | | | | | | MEDICAL | | | | | | CENTER - | | | | | | LABORATORY | | + + + + + + | MCH | 27.3 (L) | 28.0 - 35.0 pg | [facility] | | | | | | [facility] | | | | | | MEDICAL | | | | | | CENTER - | | | | | | LABORATORY | | + + + + + + | MCHC | 32.7 | 32.0 - 36.0 | [facility] | | | | | g/dL | [facility] | | | | | | MEDICAL | | | | | | CENTER - | | | | | | LABORATORY | | + + + + + + | RDW-CV | 13.8 | <15.0 % | [facility] | | | | | | [facility] | | | | | | MEDICAL | | | | | | CENTER - | | | | | | LABORATORY | | + + + + + + | Platelet | 237 | 140 - 440 K/uL | [facility] | | | Count | | | [facility] | | | | | | MEDICAL | | | | | | CENTER - | | | | | | LABORATORY | | + + + + + + | MPV | 7.3 | fL | [facility] | | | | | | [facility] | | | | | | MEDICAL | | | | | | CENTER - | | | | | | LABORATORY | | + + + + + + | % | 73.9 | 45.0 - 82.0 % | [facility] | | | Neutrophils | | | [facility] | | | | | | MEDICAL | | | | | | CENTER - | | | | | | LABORATORY | | + + + + + + | % | 16.8 (L) | 20.0 - 45.0 % | [facility] | | | Lymphocytes | | | [facility] | | | | | | MEDICAL | | | | | | CENTER - | | | | | | LABORATORY | | + + + + + + | % Monocytes | 6.4 | 4.0 - 12.0 % | [facility] | | | | | | [facility] | | | | | | MEDICAL | | | | | | CENTER - | | | | | | LABORATORY | | + + + + + + | % | 1.9 | 0.0 - 5.0 % | [facility] | | | Eosinophils | | | [facility] | | | | | | MEDICAL | | | | | | CENTER - | | | | | | LABORATORY | | + + + + + + | % Basophils | 1.0 | 0.0 - 1.0 % | [facility] | | | | | | [facility] | | | | | | MEDICAL | | | | | | CENTER - | | | | | | LABORATORY | | + + + + + + | Absolute | 8.40 | 1.80 - 8.50 | [facility] | | | Neutrophils | | K/uL | [facility] | | | | | | MEDICAL | | | | | | CENTER - | | | | | | LABORATORY | | + + + + + + | Absolute | 1.90 | 0.60 - 3.20 | [facility] | | | Lymphocytes | | K/uL | [facility] | | | | | | MEDICAL | | | | | | CENTER - | | | | | | LABORATORY | | + + + + + + | Absolute | 0.70 | 0.00 - 1.00 | [facility] | | | Monocytes | | K/uL | [facility] | | | | | | MEDICAL | | | | | | CENTER - | | | | | | LABORATORY | | + + + + + + | Absolute | 0.20 | 0.00 - 0.40 | [facility] | | | Eosinophils | | K/uL | [facility] | | | | | | MEDICAL | | | | | | CENTER - | | | | | | LABORATORY | | + + + + + + | Absolute | 0.10 | 0.00 - 0.10 | [facility] | | | Basophils | | K/uL | [facility] | | | | [...] | + + + + + | [facility] | [address] | [place] | [phone] | | [facility] | | [address] | | | - LABORATORY | | | | + + + + + | [facility] | [address] | [place] | | | [facility] | | [address] | | | - LABORATORY | | | | + + + + + documented in this encounter Visit Diagnoses Not on filedocumented in this encounter
--- OUTSIDE RECORDS SUMMARY | ~2019-03-17 | XMS | Clinical Summary ---
Demographics + + + | Address | [address] | | | [place] [address] | + + + | Home Phone | | + + + | Preferred Language | Unknown | + + + | Marital Status | Single | + + + | Buddhist Affiliation | Unknown | + + + | Race | Unknown | + + + | Ethnic Group | Unknown | + + + Author + + + | Author | [facility] | | | and [place] | + + + | Organization | [facility] | | | and Cliveana [...] Team Providers + +------+ + | Care Electric Milkers Installer Name | Role | Phone | + [...] | | + +--------+ +--------+ +---------+--------+ | [employer] | [employer] | [id number] | | [phone] | | Med[employer] | | MEDICAID HMO [...] | 1986 | [phone] | [place] [address] | | | esdras | | | 4 (Home) | | + +--------+ +--------+ + + Advance Directives + + + + + | Type | Date Recorded | Patient | Explanation | | | | Briquetter Operator | | + + + + + | Power of | 09/30/2013 10:43 | | | | Stamping Mill Tender | AM | | | + + + + + | Advance | 09/30/2013 10:43 | | | | Directive | AM | | | + + + + +
--- OUTSIDE RECORDS SUMMARY | ~2019-03-17 | XMS | Encounter Summary ---
Demographics + + + | Address | [address] | | | [place] [address] | + + + | Home Phone | | + + + | Preferred Language | Unknown | + + + | Marital Status | Single | + + + | Zoroastrian Affiliation | Unknown | + + + | Race | Unknown | + + + | Ethnic Group | Unknown | + + + Author + + + | Author | [facility] | | | and Cl[place] | + + + | Organization | [facility] | | | and Cliveana [...] Team Providers + +------+ + | Care Media Relations Manager Name | Role | Phone | + +------+ + PCP | Unavailable | + +------+ + Reason for Visit + + + | Reason | Comments | + + + | Non-stress Test | | + + + Encounter Details +--------+ + + + + | Date | Type | Department | Care Team | Description | +--------+ + + + + | 09/28/ | Hospital | [facility] | [place], | | | 2013 | Encounter | [facility] | [address] | | | | | DELIVERY [address] | [place] | | | | | [place], | [place] [address] | | | | | [place] [address] | [phone] | | | | | [phone] | | | +--------+ + + + [...] + + + | Blood Pressure | 123/72 | 09/28/2013 5:30 PM | | | | | PDT | | + + + + + | Pulse | 80 | 09/28/2013 5:30 PM | | | | | PDT | | + + + + + | Temperature | 36.5 C (97.7 F) | 09/28/2013 5:30 PM | | | | | PDT [...] Weight | 115.7 kg (255 lb) | 09/28/2013 5:32 PM | | | | | PDT | | + + + + + | Height | 157.5 cm (5' 2") | 09/28/2013 5:32 PM | | | | | PDT | | + + + + + | Body Mass Index | 46.64 | 09/28/2013 5:32 PM | | | | | PDT | | + + + + + documented in this encounter Discharge Instructions Instructions Rebecca Acevedo RN - 09/28/2013Formatting of this note might be different f rom the original. Discharge Education for the Undelivered [...]
--- OUTSIDE RECORDS SUMMARY | ~2019-03-17 | XMS | Encounter Summary ---
Demographics + + + | Address | [address] | | | [place] [address] | + + + | Home Phone | | + + + | Preferred Language | Unknown | + + + | Marital Status | Single | + + + | Sabianism Affiliation | Unknown | + + + | Race | Unknown | + + + | Ethnic Group | Unknown | + + + Author + + + | Author | [facility] | | | and [place] | + + + | Organization | [facility] | | | and [...] Team Providers + +------+ + | Care Automatic Wheel Line Operator Name | Role | Phone | [...] + + | 07/14/ | Hospital | [facility] | [place], | | | 2013 | Encounter | [facility] | [id number] | | | | | DELIVERY [address] | [place] | | | | | [place], | [place] [address] | | | | | [place] [address] | [phone] | | | | | [phone] | | | +--------+ + + + [...] - 1.030 | [facility] | | | [place] | | | [facility] | | [...] + | [facility] | [address] | [place], [place] | [phone] | | [facility] | | [address] | | | - LABORATORY | | | | + + + + + | [facility] | [address] | [place], [place] | | | [facility] | | [address] | | | - LABORATORY | | [...] + | [facility] | [address] | [place] | [phone] | | [facility] | | [address] | | | - LABORATORY | | | | + + + + + | [facility] | [address] | [place] | | | [facility] | | [address] | | | - LABORATORY | | [...] + | [facility] | [address] | [place] | [phone] | | [facility] | | [address] | | | - LABORATORY | | | | + + + + + | [facility] | [address] | [place] | | | [facility] | | [address] | | | - LABORATORY | | [...] 81 | 70 - 109 mg/dL | [facility] | | | | | | [facility] | | | | | | MEDICAL | | | | | | CENTER - | | | | | | LABORATORY | | + + + + + + | BUN | 7 | 7 - 18 mg/dL | [facility] | | | | | | [facility] | | | | | | MEDICAL | | | | | | CENTER - | | | | | | LABORATORY | | + + + + + + | Creatinine | 0.42 (L) | 0.60 - 1.30 | [facility] | | | | | mg/dL | [facility] | | | | | | MEDICAL | | | | | | CENTER - | | | | | | LABORATORY | | + + + + + + | eGFR if not | >60Comment: GLOMERULAR | >=60 | [facility] | | | | FILTRATION | mL/min/1.73m2 | [facility] | | | TRINIDADIAN | RATE,ESTIMATED | | MEDICAL | | | | mL/min/1.04t9Enqv than | | CENTER - | | [...] + | [facility] | [address] | [place], [place] | [phone] | | [facility] | | [address] | | | - LABORATORY | | | | + + + + + | [facility] | [address] | [place] | | | [facility] | | [address] | | | - LABORATORY | | [...] [address] | [place] | [phone] | | [facility] | | [address] | | | - LABORATORY | | | | + + + + + | [facility] | [address] | [place] | | | [facility] | | [address] | | | - LABORATORY | | | | + + + + + documented in this encounter Visit Diagnoses Not on filedocumented in this encounter
--- OUTSIDE RECORDS SUMMARY | ~2019-03-17 | XMS | Encounter Summary ---
Demographics + + + | Address | [address] | | | [place] [address] | + + + | Home Phone | | + + + | Preferred Language | Unknown | + + + | Marital Status | Single | + + + | Sikhism Affiliation | Unknown | + + + | Race | Unknown | + + + | Ethnic Group | Unknown | + + + Author + + + | Author | [facility] | | | and [place] | + + + | Organization | [facility] | | | and [facility] [...] Team Providers + +------+ + | Care Software Reverse Engineer Name | Role | Phone | + +------+ + | No, Physician | PCP | Unavailable | + +------+ + Encounter Details +--------+ + + + + | Date | Type | Department | Care Team | Description | +--------+ + + + + | 10/04/ | Hospital | [facility] | | No Show | | 2013 | Encounter | [facility] | | | | | | PROCEDURES [address] | | | | | [place], | | | | | | [place] [address] | | | | | | [phone] | | | +--------+ + + + [...]
--- OUTSIDE RECORDS SUMMARY | ~2019-03-17 | XMS | Encounter Summary ---
Demographics + + + | Address | [address] | | | [place] [address] | + + + | Home Phone | | + + + | Preferred Language | Unknown | + + + | Marital Status | Single | + + + | Taoist Affiliation | Unknown | + + + | Race | Unknown | + + + | Ethnic Group | Unknown | + + + Author + + + | Author | [facility] | | | and Clive[place] | + + + | Organization | [facility] | | | and Clive[place] [...] Team Providers + +------+ + | Care Decorating Inspector Name | Role | Phone | [...] + + | 09/28/ | Hospital | [facility] | [place], | | | 2013 | Encounter | [facility] | [id number] | | | | | DEL[address] [place] | | | | | [facility], | [place] [address] | | | | | [place] [address] | [phone] | | | | | [phone] | | | +--------+ + + + [...]
[~2019-03-17 19:02] MED LIST: SYNTHROID175 MCG PO
[2019-03-17] MEDS ORDERED: TAMIFLU75 MG PO (20:05)
== END 2019-03-17 20:45 | disposition home or self-care (01) ==
LOC: ED 19:02
DX: J10.1 Influenza due to other identified influenza virus with other respiratory manifestations (principal)
CPT/HCPCS: 87502; 99283

== ENCOUNTER 2019-06-09 06:44 | Inpatient (IN) | payer OTHER ==
[~2019-06-09] VITALS: Ht 157.5 cm; Wt 120.0 kg
[~2019-06-09 06:44] MED LIST changes: +TAMIFLU75 MG PO
--- NOTE | 2019-06-09 11:01 | PR ---
[facility] [address] [facility] [place], [place] [address] Signed Progress Notes IP Datetime Report Generated by CPN: 06/09/2019 11:01 PROGRESS NOTES: [id number] Impression: Normal progression of labor Procedures: Sterile Vag Exam Plan: Continue present management; Anticipate Vaginal Delivery Informed Consent Obtain: Vaginal Delivery VITAL SIGNS: [id number] Vital Signs: Reviewed; Within Normal Limits EXAM: [id number] Dilatation: 8.0 Effacement: 90 Station: -2 Uterine Contractions: Irregular MEMBRANES: [id number] Membrane Status: Ruptured Comments: Pt seen and examined. Doing well. C/O more pressure in her bottom. 8cm on exam but somewhat high station. Will attempt various laboring positions. Anticipate . Fetus A: [id number] FHR Baseline: 125 Variability: Moderate 6-25bpm Accelerations: 15X15 Decelerations: None FHR Category: Category I Presentation: Vertex Comments on Fetus A: No evidence of metabolic acidosis Fetus B: [id number] Signing Physician: José Rider DO Copies: ~ *Electronically Signed* 06/09/19 1101 JOSÉ RIDER DO PATIENT NAME: CYN COBB PROGRESS NOTE DATE OF : 85 PHYSICIAN: JOSÉ RIDER DO RPT #: [id number] REPORT IS CONFIDENTIAL AND NOT TO BE RELEASED WITHOUT AUTHORIZATION
--- NOTE | 2019-06-09 12:51 | PR ---
[facility] [address] [place], [place] [address] Signed Progress Notes IP Datetime Report Generated by CHAPITO: 06/09/2019 12:51 PROGRESS NOTES: [id number] Impression: Reassuring heart rate; Slow Progression of Labor Procedures: Sterile Vag Exam Plan: Continue present management Other Plans: Consider augmentation Informed Consent Obtain: Vaginal Delivery VITAL SIGNS: [id number] Vital Signs: Reviewed; Within Normal Limits EXAM: [id number] Dilatation: 8.0 Effacement: 95 Station: -2 Uterine Contractions: Inadequate q 2 min MEMBRANES: [id number] Membrane Status: Ruptured Comments: Pt seen and examined. Feeling more pressure. On exam cervix largely unchange; still 8cm and somewhat high station. CTXs q2 minutes but inadequate. FHT reassuring; Cat 1. Recommend augmentation w/ low dose pitocin per protocol. Pt and family considering. Fetus A: [id number] FHR Baseline: 130 Variability: Moderate 6-25bpm Accelerations: 15X15 Decelerations: None FHR Category: Category I Presentation: Vertex Comments on Fetus A: No evidence of metabolic acidosis Fetus B: [id number] Signing Physician: José Rider DO Copies: ~ *Electronically Signed* 06/09/19 1242 JOSÉ RIDER DO PATIENT NAME: CYN COBB PROGRESS NOTE DATE OF : 85 PHYSICIAN: JOSÉ RIDER #: [id number] REPORT IS CONFIDENTIAL AND NOT TO BE RELEASED WITHOUT AUTHORIZATION
[2019-06-10] MEDS ORDERED: LEVOTHYROXINE175 MCG PO (07:53)
--- NOTE | 2019-06-10 11:56 | PR ---
[facility] [address] [facility] [place], [place] [address] Signed PP Progress Notes Datetime Report Generated by CPN: 06/10/2019 11:56 SUBJECTIVE: [id number] Pain: Within normal limits Nausea/Vomiting: Denies Flatus: Yes Vital Signs: [id number] Vital Signs: Reviewed EXAM: [id number] Cardiovascular: Normal Respiratory: Normal Abdomen/Uterus: Normal Lochia: Normal Vulva/Perineum: Not Done Breasts: Not Done CVA Tenderness: Normal Extremities: Normal Incision: Not Applicable Progress: Normal Exam Comments: Fundus firm U-2 nontender IMPRESSION/PLAN/PROCEDURES: [id number] Impression: Normal progression Plan: Continue present management Progress Notes: Pt seen and examined. Doing well. Ambulating, voiding, and tolerating full diet. Pain and lochia minimal. well. no concerns. Desires d/c casper tomorrow. Signing Physician: José Rider DO Copies: ~ *Electronically Signed* 06/10/19 1156 JOSÉ RIDER DO PATIENT NAME: CYN COBB PROGRESS NOTE DATE OF : 85 PHYSICIAN: JOSÉ RIDER DO RPT #: [id number] REPORT IS CONFIDENTIAL AND NOT TO BE RELEASED WITHOUT AUTHORIZATION
--- NOTE | 2019-06-11 10:00 | PR ---
[facility] [address] [facility] [place], [place] [address] Signed PP Progress Notes Datetime Report Generated by CPN: 06/11/2019 10:00 SUBJECTIVE: [id number] Pain: Within normal limits Nausea/Vomiting: Denies Flatus: Yes Bowel Movement: No Vital Signs: [id number] Vital Signs: Reviewed EXAM: [id number] Cardiovascular: Normal Respiratory: Normal Abdomen/Uterus: Normal Lochia: Normal Vulva/Perineum: Not Done Breasts: Not Done CVA Tenderness: Normal Extremities: Normal Incision: Not Applicable Progress: Normal Exam Comments: fundus firm U-2 nontender IMPRESSION/PLAN/PROCEDURES: [id number] Impression: Normal progression Plan: Discharge Progress Notes: Pt seen and examined. Doing well. Ambulating voiding and tolerating full diet. Pain and lochia minimal. well. with clavicular fracture noted by pediatrics. Reviewed clavicular fracture w/ pt and and discussed no shoulder dystocia and rapid descent. Pt and understanding and all questions answered. Discharge home today. Signing Physician: José Fernandez DO Copies: ~ *Electronically Signed* 06/11/19 JOSÉ OCONNOR DO PATIENT NAME: CYN COBB PROGRESS NOTE DATE OF : 85 PHYSICIAN: JOSÉ FERNANDEZ DO RPT #: [id number] REPORT IS CONFIDENTIAL AND NOT TO BE RELEASED WITHOUT AUTHORIZATION
== END 2019-06-11 15:35 | disposition home or self-care (01) | DRG 806 ==
LOC: FBC 06:44
PROVIDERS: ADMIT Obstetrics & Gynecology
PROC: 10E0XZZ Delivery of Products of Conception, External Approach (ICD-10-PCS; principal; 2019-06-09)
PROC: 0KQM0ZZ Repair Perineum Muscle, Open Approach (ICD-10-PCS; 2019-06-09)
DX: O62.3 Precipitate labor (principal); K90.41 Non-celiac gluten sensitivity; Z37.0 Single live birth; O99.62 Diseases of the digestive system complicating childbirth; Z3A.40 40 weeks gestation of pregnancy; O70.1 Second degree perineal laceration during delivery; O99.284 Endocrine, nutritional and metabolic diseases complicating childbirth; E03.9 Hypothyroidism, unspecified; O99.214 Obesity complicating childbirth; E66.9 Obesity, unspecified; Z79.899 Other long term (current) drug therapy
CPT/HCPCS: 36415; 72170; 85027; A9270; J2590

== ENCOUNTER 2023-04-28 02:52 | Inpatient (IN) | payer OTHER ==
[~2023-04-28 02:52] MED LIST changes: +LEVOTHYROXINE175 MCG PO
[2023-04-28 04:03] LABS: HEMATOCRIT 40.9 % (35.0-50.0); HEMOGLOBIN 13.5 g/dL (12.0-18.0); MCHC 32.9 g/dl (30-36); MCV 78.9 fl (81-99); RBC 5.18 M/ul (4.3-5.7); RDW 14.8 (10.5-15.0)
[2023-04-28 04:31] LABS: AMPHETAMINES, URINE NEGATIVE (NEGATIVE); BARBITURATES, URINE NEGATIVE (NEGATIVE); BENZODIAZEPINE, URINE NEGATIVE (NEGATIVE); BUPRENORPHINE, URINE NEGATIVE (NEGATIVE); CANNABINOID, URINE NEGATIVE (NEGATIVE); COCAINE, URINE NEGATIVE (NEGATIVE); ECSTASY, URINE NEGATIVE (NEGATIVE); FENTANYL, URINE NEGATIVE (NEGATIVE); METHADONE, URINE NEGATIVE (NEGATIVE); OPIATES, URINE NEGATIVE (NEGATIVE); OXYCODONE, URINE NEGATIVE (NEGATIVE); PHENCYCLIDINE, URINE NEGATIVE (NEGATIVE)
[2023-04-28 04:39] LABS: ABO A
[2023-04-28 04:40] LABS: ANTIBODY SCREEN NEGATIVE; RH POSITIVE
--- NOTE | 2023-04-28 07:46 | PR ---
[facility] [address] [facility] [place] [address] Signed Progress Notes IP Datetime Report Generated by CPN: 04/28/2023 07:46 PROGRESS NOTES: [id number] Impression: Normal Progression of Labor Procedures: Sterile Vag Exam Plan: Continue Present Management; Anticipate Vaginal Delivery Informed Consent Obtain: Vaginal Delivery VITAL SIGNS: [id number] Vital Signs: Reviewed; Within Normal Limits EXAM: [id number] Dilatation: 8.0 Effacement: 70 Station: -2 Contractions: q -34 minutes MEMBRANES: E9008660 Amniotic Fluid Color: Clear ROM Note: SROM at 0150 Comments: Pt seen and examined. Doing well. Uncomfortable w/ contractions w/ some N/V. Discussed anticipated course of labor / delivery. All questions answered. FETUS A: [id number] FHR Baseline: 125 Variability: Moderate 6-25bpm Accelerations: None Decelerations: None FHR Category: Category I Presentation: Vertex Comments on Fetus A: No evidence of metabolic acidosis FETUS B: [id number] Signing Physician: José Rider DO Copies: ~ *Electronically Signed* 04/28/23 0746 JOSÉ RIDER (LATONYA) DO PATIENT NAME: CYN COBB PROGRESS NOTE DATE OF : 85 PHYSICIAN: JOSÉ RIDER (JD) DO RPT #: [id number] REPORT IS CONFIDENTIAL AND NOT TO BE RELEASED WITHOUT AUTHORIZATION
--- NOTE | 2023-04-28 10:54 | PR ---
[facility] [address] [place], [place] [address] Signed Progress Notes IP Datetime Report Generated by CHAPITO: 04/28/2023 10:54 PROGRESS NOTES: [id number] Impression: Reassuring Heart Rate Other Impressions: Slow progression of labor Procedures: Sterile Vag Exam Other Procedures: Cx exam per RN Plan: Augmentation Other Plans: Recommended augmentation w/ pitocin; pt declines Informed Consent Obtain: Risks, Benefits and Alternatives Discussed VITAL SIGNS: [id number] Vital Signs: Reviewed; Within Normal Limits EXAM: [id number] Dilatation: 9.0 Effacement: 70 Station: -3 Contractions: Irregular MEMBRANES: [id number] Amniotic Fluid Color: Clear ROM Note: SROM at 0150 Comments: Pt seen and evaluated. Moderately uncomfortable w/ epidural. Cx exam per RN. Unchanged and ctxs irregular. Recommended pitocin. Pt and family initially agreed but when RN returned to initiate pt declines. Will monitor and if unchanged at next exam will recommend IUPC and pitocin augmentation FETUS A: [id number] FHR Baseline: 125 Variability: Moderate 6-25bpm Accelerations: None Decelerations: None FHR Category: Category I Presentation: Vertex Comments on Fetus A: No evidence of metabolic acidosis FETUS B: [id number] Signing Physician: José Rider DO *Electronically Signed* 04/28/23 1056 JOSÉ RIDER (LATONYA) DO PATIENT NAME: CYN COBB PROGRESS NOTE DATE OF : 85 PHYSICIAN: JOSÉ RIDER (JD) DO RPT #: [id number] REPORT IS CONFIDENTIAL AND NOT TO BE RELEASED WITHOUT AUTHORIZATION
--- NOTE | 2023-04-28 11:46 | PR ---
[facility] [address] [place], [place] [address] Signed Progress Notes IP Datetime Report Generated by CHAPITO: 04/28/2023 11:46 PROGRESS NOTES: [id number] Impression: Normal Progression of Labor; Reassuring Heart Rate Other Impressions: Slow progression of labor Procedures: Intrauterine Pressure Catheter; Scalp Electrode; Sterile Vag Exam Other Procedures: Cx exam per RN Plan: Continue Present Management Other Plans: Recommended augmentation w/ pitocin; pt declines Informed Consent Obtain: Vaginal Delivery VITAL SIGNS: [id number] Vital Signs: Reviewed; Within Normal Limits EXAM: [id number] Dilatation: 9.0 Effacement: 90 Station: -3 Contractions: Irregular and mild MEMBRANES: B0061321 Amniotic Fluid Color: Clear ROM Note: SROM at 0150 Comments: Pt seen and examined. Somewhat more uncomfortable w/ contractions. CTXs irregular and mild. Cx w/out significant cervical change. Recommended IUPC and recommended FSE and fetus difficult to monitor and mother desires to be active. Reviewed "Three P's:" power, passage, and passenger and recommended optimization of each. Will monitor contractions and consider augmentation if insufficient MVUs noted. All questions answered. FETUS A: [id number] FHR Baseline: 125 Variability: Moderate 6-25bpm Accelerations: None Decelerations: None FHR Category: Category I Presentation: Vertex Comments on Fetus A: No evidence of metabolic acidosis FETUS B: [id number] Signing Physician: José Rider DO *Electronically Signed* 04/28/23 1146 JOSÉ RIDER) DO PATIENT NAME: CYN COBB PROGRESS NOTE DATE OF : 85 PHYSICIAN: JOSÉ RIDER) DO RPT #: [id number] REPORT IS CONFIDENTIAL AND NOT TO BE RELEASED WITHOUT AUTHORIZATION
[2023-04-29 05:32] LABS: HEMATOCRIT 36.3 % (35.0-50.0); MCH 26.2 (27-36); MCHC 33.2 g/dl (30-36); MCV 78.9 fl (81-99); RBC 4.61 M/ul (4.3-5.7); RDW 14.5 (10.5-15.0)
--- NOTE | 2023-04-29 09:04 | PR ---
[facility] [address] [place], [place] [address] Signed PP Progress Notes Datetime Report Generated by CPN: 04/29/2023 09:04 SUBJECTIVE: [id number] Pain: Within Normal Limits Nausea/Vomiting: Denies Flatus: No Bowel Movement: No Vital Signs: [id number] Vital Signs: Reviewed; Within Normal Limits Cardiovascular: Normal Respiratory: Normal Abdomen/Uterus: Normal Lochia: Normal Vulva/Perineum: Not Done Breasts: Not Done CVA Tenderness: Normal Extremities: Normal Incision: Not Applicable Progress: Normal Exam Comments: Fundus firm U-2 nontender IMPRESSION/PLAN/PROCEDURES: [id number] Impression: Normal Progression Progress Notes: Pt seen and examined. Doing well. Ambulating, voiding, and tolerating full diet. Lochia minimal but c/o more pain than prior deliveries. Not wanting to go home today at this point. well. No other concerns. Anticipate d/c home tomorrow. Signing Physician: José Rider DO Copies: ~ *Electronically Signed* 04/29/23 0904 JOSÉ RIDER (LATONYA) DO PATIENT NAME: CYN COBB PROGRESS NOTE DATE OF : 85 PHYSICIAN: JOSÉ RIDER) DO RPT #: [id number] REPORT IS CONFIDENTIAL AND NOT TO BE RELEASED WITHOUT AUTHORIZATION
--- NOTE | 2023-04-29 17:48 | PR ---
[facility] [address] [facility] [place], [place] [address] Signed PP Progress Notes Datetime Report Generated by CPN: 04/29/2023 17:48 SUBJECTIVE: [id number] Pain: Within Normal Limits Nausea/Vomiting: Denies Flatus: Yes Bowel Movement: No Vital Signs: [id number] Vital Signs: Reviewed Cardiovascular: Normal Respiratory: Normal Abdomen/Uterus: Normal Lochia: Normal Vulva/Perineum: Not Done Breasts: Not Done CVA Tenderness: Normal Extremities: Normal Incision: Not Applicable Progress: Normal Exam Comments: Fundus firm U-2 nontender IMPRESSION/PLAN/PROCEDURES: [id number] Impression: Normal Progression Plan: Discharge Progress Notes: Pt feeling much better and desires d/c home. Reviewed discharge instructions and medications. All questions answered. Signing Physician: José Rider DO Copies: ~ *Electronically Signed* 04/29/23 1748 JOSÉ RIDER) DO PATIENT NAME: CYN COBB PROGRESS NOTE DATE OF : 85 PHYSICIAN: JOSÉ RIDER) DO RPT #: [id number] REPORT IS CONFIDENTIAL AND NOT TO BE RELEASED WITHOUT AUTHORIZATION
== END 2023-04-29 18:40 | disposition home or self-care (01) | DRG 807 ==
LOC: FBCO 02:52 → FBC 03:30
PROVIDERS: ADMIT Obstetrics & Gynecology; ATTEND Obstetrics & Gynecology
PROC: 10E0XZZ Delivery of Products of Conception, External Approach (ICD-10-PCS; principal; 2023-04-28)
PROC: 0KQM0ZZ Repair Perineum Muscle, Open Approach (ICD-10-PCS; 2023-04-28)
DX: O48.0 Post-term pregnancy (principal); Z37.0 Single live birth; O76 Abnormality in fetal heart rate and rhythm complicating labor and delivery; O70.1 Second degree perineal laceration during delivery; Z3A.40 40 weeks gestation of pregnancy; O99.214 Obesity complicating childbirth; E66.01 Morbid (severe) obesity due to excess calories; O99.284 Endocrine, nutritional and metabolic diseases complicating childbirth; E03.9 Hypothyroidism, unspecified; Z79.890 Hormone replacement therapy
CPT/HCPCS: 36415; 80307; 85027; 86850; 86900; 86901; A9270; J2590; J3490